=== PATIENT | female | born 2005 | race Two or more races ===

== ENCOUNTER 2025-07-21 15:29 | Emergency (ER) | payer MEDICAID, OTHER ==
[~2025-07-21] VITALS: Ht 172.7 cm; Wt 90.9 kg
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
[2025-07-21] MEDS ORDERED: IBUP-1456 PO (17:26)
[2025-07-21] MEDS: KETOROLAC TROMETH 30 MG/ML 1ML VIAL IV ONE (17:38)
[2025-07-21 17:44] VITALS: BP 118/78; PULSE 67; RESP 18; TEMP 97.8; O2SAT 100
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
== END 2025-07-21 18:08 | disposition home or self-care (01) ==
LOC: EDBD 15:29 → EDSEX 15:29 → ER 15:29
DX: S46.912A Strain of unspecified muscle, fascia and tendon at shoulder and upper arm level, left arm, initial encounter (principal); S83.92XA Sprain of unspecified site of left knee, initial encounter; V89.2XXA Person injured in unspecified motor-vehicle accident, traffic, initial encounter; Y93.I9 Activity, other involving external motion; Y92.488 Other paved roadways as the place of occurrence of the external cause; Y99.8 Other external cause status
CPT/HCPCS: 73030; 73562; 96372; 99284; J1885